=== PATIENT | female | born 1955 | race Two or more races ===

== ENCOUNTER 2022-06-07 12:14 | Day surgery (SDC) | payer MEDICARE, MEDICAID, SELFPAY ==
--- NOTE | 2022-06-06 10:58 | HO.ANESPROP2 ---
Documented by User: Mely Uribe NP 06/06/22 12:24 HPI - Anesthesia Eval Consult details Narrative: 67yo F for Colonoscopy CAD, Heart failure (reduced EF, but patient declines recommended ICD), afib (eliquis ok'd to hold by cardio), carotid stenois Case reviewed with Dr Annelise REYES Past Medical History Medical History Adenocarcinoma of sigmoid colon Afib CAD (coronary artery disease) Carotid stenosis Colon cancer Degenerative joint disease Diabetes History of colon polyps History of HI (myocardial infarction) Hyperlipidemia Hypertension Morbid obesity ISH (obstructive sleep apnea) Systolic heart failure Tubular adenoma Surgical History Surgical History History of cardiac catheterization History of section History of cholecystectomy History of colon resection History of colonoscopy History of hysterectomy Social History Social History (Updated 06/06/22 @ 09:40 by Erica Schmitt RN) Patient Tobacco Use Status: Former Tobacco user Quit Date: 15 years ago Use of substances other than those prescribed or required for medical reasons: No Are you DNR?: No Advance Directives: No Advance Directives Information Provided: Yes Meds Allergies Allergy/AdvReac Type Severity Reaction Status Date / Time codeine Allergy Unknown Verified 06/06/22 09:40 Home Medications Medication Instructions Recorded Confirmed Last Taken Type apixaban 5 mg tablet (Eliquis) 1 tab PO BID 06/06/22 06/06/22 Unknown History azelastine 137 mcg (0.1 %) nasal 2 spray intranasal BID 06/06/22 06/06/22 Unknown History spray aerosol bisoprolol fumarate 5 mg tablet 1 tab PO DAILY 06/06/22 06/06/22 Unknown History cetirizine 10 mg tablet 1 tab PO DAILY 06/06/22 06/06/22 Unknown History empagliflozin 25 mg tablet 1 tab PO QAM 06/06/22 06/06/22 Unknown History (Jardiance) irbesartan 75 mg tablet 1 tab PO DAILY 06/06/22 06/06/22 Unknown History rosuvastatin 40 mg tablet 1 tab PO DAILY 06/06/22 06/06/22 Unknown History spironolactone 25 mg tablet 1 tab PO DAILY 06/06/22 06/06/22 Unknown History Exam Exam Date and Time: June 06, 2022 1058 Narrative Narrative: ECHO 05/2022 LVEF 25-30% Severe global hypokinesis of LV LV wall thickness is mildly increased LV moderately dilated RV is normal in size and mildly hypokinetic LA moderately dilated RA is dilated Mild to moderate mitral regurg Mild pulmonary htn No significant change from 12/2021 MRA Neck 01/2021 Right common carotid is patent Occlusion of extracranial ZUNILDA from its origion (100%) Left common carotid is patent Origin of left ICA is patent. Apparent ulcerated plaques of the proximal L ICA measuring 4mm in length by up to 3mm in depth Proximal L ICA is subtly narrowed (<25%) Assessment and Plan Assessment Anesthesia Assessment: Chart Reviewed Documented by User: Jason Woodall MD 06/07/22 13:06 [facility] Past Medical History Medical History Adenocarcinoma of sigmoid colon Afib CAD (coronary artery disease) Carotid stenosis Colon cancer Degenerative joint disease Diabetes History of colon polyps History of HI (myocardial infarction) Hyperlipidemia Hypertension Morbid obesity ISH (obstructive sleep apnea) Systolic heart failure Tubular adenoma Family History Family history of problems with anesthesia: No Surgical History Surgical History History of cardiac catheterization History of section History of cholecystectomy History of colon resection History of colonoscopy History of hysterectomy History of Problems with Anesthesia: No Social History Social History (Updated 06/06/22 @ 09:40 by Erica Schmitt RN) Patient Tobacco Use Status: Former Tobacco user Quit Date: 15 years ago Use of substances other than those prescribed or required for medical reasons: No Are you DNR?: No Advance Directives: No Advance Directives Information Provided: Yes Meds Allergies Allergy/AdvReac Type Severity Reaction Status Date / Time codeine Allergy Unknown Verified 06/06/22 09:40 Home Medications Medication Instructions Recorded Confirmed Last Taken Type apixaban 5 mg tablet (Eliquis) 1 tab PO BID 06/06/22 06/06/22 Unknown History azelastine 137 mcg (0.1 %) nasal 2 spray intranasal BID 06/06/22 06/06/22 Unknown History spray aerosol bisoprolol fumarate 5 mg tablet 1 tab PO DAILY 06/06/22 06/06/22 Unknown History cetirizine 10 mg tablet 1 tab PO DAILY 06/06/22 06/06/22 Unknown History empagliflozin 25 mg tablet 1 tab PO QAM 06/06/22 06/06/22 Unknown History (Jardiance) irbesartan 75 mg tablet 1 tab PO DAILY 06/06/22 06/06/22 Unknown History rosuvastatin 40 mg tablet 1 tab PO DAILY 06/06/22 06/06/22 Unknown History spironolactone 25 mg tablet 1 tab PO DAILY 06/06/22 06/06/22 Unknown History Exam Airway Mallampati Class: IV TM Dist: >3cm Neck ROM: Full Partial: Upper Heart: irrr Lungs: few crackles at left base Assessment and Plan Final Anesthetic Review Family History of Problems with Anesthesia: No History of Problems with Anesthesia: No NPO: Yes ASA Class: IV Final Preanesthetic Review: No Changes in Pt Med Stat, Meds/Allgs Chart Reviewed, Consent Obtained/Reviewed and Anes Risks/Benef Reviewed Patient Risk: High Procedure Risk: Low Anesthetic Plan Anesthetic Plan: MAC: Disposition: Standard PACU
[2022-06-07 12:21] VITALS: BP 99/51; PULSE 102; RESP 20; TEMP 37; O2SAT 95; BMI 37.8
[2022-06-07] MEDS: Lactated Ringers 1,000 ML 20 ML IVCONT (12:51)
--- NOTE | 2022-06-07 13:02 | MHC.SHP ---
Pre-Procedural Eval Section A Date of Service: 06/07/22 The patient is an INPATIENT: No Changes since office visit: No Cold of Flu in the past 2 weeks, No New Medical Problems, No Changes in Medication and No Patient answered all questions The History & Physical has been completed within 30 days and I have reviewed it.: Yes Section B Chief Complaint: Encounter for screening for malignant neoplasm of Allergies: Allergies Allergy/AdvReac Type Severity Reaction Status Date / Time codeine Allergy Unknown Verified 06/06/22 09:40 Plan I have reviewed the history and physical and performed a pertinent physical examination on my patient. No changes have occurred unless specified.
[2022-06-07 13:23] LABS: Glucose, Whole Blood 121 mg/dL (60-115)
--- NOTE | 2022-06-07 13:58 | P.BOP_ITS ---
Brief Operative Note Date of Service: 06/07/22 Pre-op diagnosis: screening Post-op diagnosis: same Procedure: [id number] Surgeon: Surya Yates Anesthesia: MAC Was an Coordinator Cardiopulmonary Services used for this Procedure?: No Estimated blood loss (mL): 2 Pathology: other Condition: stable Disposition: PACU
--- NOTE | 2022-06-07 13:58 | PM.OP ---
Brief Operative Note Date of Service: 06/07/22 Pre-op diagnosis: screening Post-op diagnosis: same Procedure: [id number] Surgeon: Surya Yates Anesthesia: MAC Was an Welfare Specialist used for this Procedure?: No Estimated blood loss (mL): 2 Pathology: other Condition: stable Disposition: PACU
[2022-06-07 14:02] VITALS: BP 93/58; PULSE 77; RESP 20; TEMP 36.3; O2SAT 95
[2022-06-07 14:17] VITALS: BP 113/6; PULSE 74; RESP 18; TEMP 36.3; O2SAT 95
--- NOTE | 2022-06-07 21:06 | OP_ITS ---
SURGEON: Surya Yates MD INDICATIONS: Colon cancer screening and prior history of colon cancer. PREOPERATIVE DIAGNOSIS: POSTOPERATIVE DIAGNOSIS: PROCEDURE PERFORMED: Colonoscopy to the terminal ileum with biopsy. ESTIMATED BLOOD LOSS: COMPLICATIONS: ANESTHESIA: Monitored anesthesia care. ASSISTANTS: SPECIMENS: DESCRIPTION OF PROCEDURE: History and physical performed. The risks and benefits of the procedure were explained to the patient. Informed consent was obtained. The patient was placed in the left lateral decubitus position. A digital rectal exam was performed and was found to be normal. The Olympus pediatric video colonoscope was introduced into the rectum and advanced to the cecum without difficulty. The cecum was identified by transillumination, palpation, and identification of ileocecal valve. Examination was performed. The scope was removed. She tolerated the procedure well. Returned to recovery area in stable condition. FINDINGS: The terminal ileum was normal. The visualized colonic mucosa was normal. Abdominal wall pressure was used to assist in advancement of the scope due to looping in the sigmoid. A single polyp measuring less than 5 mm was identified at the level of the ileocecal valve. This was removed with biopsy forceps. No other polyps were identified. There was a widely patent sigmoid anastomosis at about 25 cm from her previous resection. There was moderate sigmoid diverticulosis. Retroflexed examination showed some small internal hemorrhoids. There was some liquid stool coating the mucosa limiting the sensitivity examination for detection of small polyps. This was washed and suctioned. The procedure was done on 06/07/2022. IMPRESSION: Colon polyp. RECOMMENDATION: Follow up the biopsy results. MD GARTH Mcknight/MODL / [id number]
== END 2022-06-07 15:05 | disposition home or self-care (01) ==
PROVIDERS: PCP Internal Medicine; Visit Provider Internal Medicine Gastroenterology
PROC: 0DJD8ZZ Inspection of Lower Intestinal Tract, Via Natural or Artificial Opening Endoscopic (ICD-10-PCS; CPT 45378; principal; 2022-06-07 13:00)
DX: Z12.11 Encounter for screening for malignant neoplasm of colon (principal); Z85.038 Personal history of other malignant neoplasm of large intestine; D12.0 Benign neoplasm of cecum; K57.30 Diverticulosis of large intestine without perforation or abscess without bleeding; K64.8 Other hemorrhoids; Z90.49 Acquired absence of other specified parts of digestive tract; Z98.0 Intestinal bypass and anastomosis status; E78.5 Hyperlipidemia, unspecified; I10 Essential (primary) hypertension; I25.10 Atherosclerotic heart disease of native coronary artery without angina pectoris; Z98.61 Coronary angioplasty status; I25.2 Old myocardial infarction; E11.9 Type 2 diabetes mellitus without complications; Z79.84 Long term (current) use of oral hypoglycemic drugs; Z79.82 Long term (current) use of aspirin; Z79.899 Other long term (current) drug therapy; Z88.8 Allergy status to other drugs, medicaments and biological substances; Z87.891 Personal history of nicotine dependence
CPT/HCPCS: 45380; 82947; 88305

== ENCOUNTER 2023-03-06 13:54 | Outpatient (REF) | payer MEDICARE, MEDICAID, SELFPAY ==
--- NOTE | 2023-03-07 10:16 | MHC.AU.HA3 ---
Hearing Instrument Follow-Up- Binaural Date of Visit: 03/06/23 Right Ear: Make, Model, Color, Serial Number: Adrian Aguirre [id number] SN: [id number] Color: Crum Metallurgy Teacher Repair Warranty: 02/20/2024 Metallurgy Teacher Loss and Damage Warranty: 02/20/2024 [facility] Service Plan: Battery Size: Rechargeable Production Superintendent Hydro/Slim Tube: 2M Earmold/Dome/CShell/SlimTip:Phonak acrylic slim tip canal mold SN: [id number] Type of Wax Guard: CeruStop Dispensed By: [facility] Date of Fitting: November 2020 Follow-Up Summary: 25 minutes late for 30 minute appointment. Able to see as next patient no showedTelly Kelley was a previous patient at the [facility] the [facility] and has decided to transfer care here. She reported that her hearing aid has recently sounded weak and is missing the wax guard. Cleaned hearing aid and ear mold. Significant wax build up noted in CeruShield on wine specialist. Vacuumed microphones. Replaced CeruShield. Attempted to replace CeruStop on ear mold; however, it would not stay in place. Allie noted that one time she tried changing the CeruStop and a red piece of the ear mold came off with it. Impression taken of right ear without incident to order new ear mold. Allie can use current ear mold as is for now without CeruStop. A listening check demonstrated that the hearing aid is amplifying. Updated firmware in hearing aid. Recommendations: Patient will be contacted when materials have arrived. Diagnosis Code(s): Primary Diagnosis: H90.41 SNHL Unilateral Right Ear, W/Unrestricted Contralateral Hearing Signature: Provider: Clementina Yanez, [facility]
== END 2023-03-06 13:55 | disposition home or self-care (01) ==
LOC: HO.HAP 13:54
PROVIDERS: Visit Provider Internal Medicine
DX: H90.41 Sensorineural hearing loss, unilateral, right ear, with unrestricted hearing on the contralateral side (principal)
CPT/HCPCS: 92592; 99499; V5275

== ENCOUNTER 2023-03-29 11:01 | Outpatient (REF) | payer MEDICARE, MEDICAID, SELFPAY ==
--- NOTE | 2023-03-29 14:19 | MHC.AU.HA3 ---
Hearing Instrument Follow-Up- Binaural Date of Visit: 03/29/23 Right Ear: Make, Model, Color, Serial Number: Adrian Aguirre [id number] SN: [id number] Color: Jackson Oceanologist Repair Warranty: 02/20/2024 Oceanologist Loss and Damage Warranty: 02/20/2024 [facility] Service Plan: Battery Size: Rechargeable Load Dispatcher/Slim Tube: 0M Earmold/Dome/CShell/SlimTip:Phonak acrylic slim tip canal mold SN: [id number] Warranty: 06/14/2023 Type of Wax Guard: CeruStop Dispensed By: Selvin itembase [facility] Date of Fitting: November 2020 Follow-Up Summary: Allie reported that her hearing aid is and will not charge. Confirmed in office - will need to send to [employer] for repair. Fit new slim tip ear mold on broadband engineer and transferred broadband engineer and ear mold to loaner hearing aid. Allie reported new ear mold felt more comfortable. No feedback noted in office. Sent Allie's hearing aid to [employer]. Recommendations: Patient will be contacted when materials have arrived - Will need appointment to transfer broadband engineer and ear mold from loaner to repaired hearing aid. Diagnosis Code(s): Primary Diagnosis: H90.A31 Mixed HL, Unilateral Right Ear, W/Restricted Contralateral Secondary Diagnosis: H90.A22 SNHL, Unilatearl, Left Ear, W/Restricted Contralateral Hearing Signature: Provider: Clementina Yanez, [facility]
== END 2023-03-29 11:02 | disposition home or self-care (01) ==
LOC: HO.HAP 11:01
PROVIDERS: Visit Provider Internal Medicine
DX: Z46.1 Encounter for fitting and adjustment of hearing aid (principal); H90.A31 Mixed conductive and sensorineural hearing loss, unilateral, right ear with restricted hearing on the contralateral side; H90.A22 Sensorineural hearing loss, unilateral, left ear, with restricted hearing on the contralateral side
CPT/HCPCS: 92592; 99499; V5264

== ENCOUNTER 2023-04-30 15:03 | Outpatient (REF) | payer MEDICARE, MEDICAID, SELFPAY | END 2023-04-30 15:04 | disposition home or self-care (01) | LOC: HO.HAP 15:03 | PROVIDERS: Visit Provider Internal Medicine | DX: Z13.89 Encounter for screening for other disorder (principal) ==

== ENCOUNTER 2023-08-17 16:17 | Outpatient (REF) | payer MEDICARE, MEDICAID, SELFPAY | END 2023-08-17 16:18 | disposition home or self-care (01) | LOC: HO.HAP 16:17 | PROVIDERS: Visit Provider Internal Medicine | DX: Z13.89 Encounter for screening for other disorder (principal) ==

== ENCOUNTER 2023-08-21 14:42 | Outpatient (REF) | payer MEDICARE, MEDICAID, SELFPAY | END 2023-08-21 14:43 | disposition home or self-care (01) | LOC: HO.HAP 14:42 | PROVIDERS: Visit Provider Internal Medicine | DX: Z46.1 Encounter for fitting and adjustment of hearing aid (principal); H90.A22 Sensorineural hearing loss, unilateral, left ear, with restricted hearing on the contralateral side; H90.A31 Mixed conductive and sensorineural hearing loss, unilateral, right ear with restricted hearing on the contralateral side | CPT/HCPCS: 92592; 99499 ==

== ENCOUNTER 2024-09-02 10:39 | Day surgery (SDC) | payer MEDICARE, MEDICAID, SELFPAY ==
[2024-08-28 12:26] VITALS: BMI 39.5
[2024-09-02 10:57] VITALS: BMI 36.7
[2024-09-02 11:08] VITALS: BP 121/90; PULSE 103; RESP 18; TEMP 37.3; O2SAT 92
[2024-09-02 11:22] LABS: Glucose, Whole Blood 124 mg/dL (60-115)
[2024-09-02] MEDS: Lactated Ringers 1,000 ML 100 ML IVCONT (11:22)
--- NOTE | 2024-09-02 11:23 | MHC.SHP ---
Pre-Procedural Eval Section A - 24 Hr Update-Section A only Date of Service: 09/02/24 Section B - Complete if H&P > 30 days Chief Complaint: s/sx involving digestive,hx of malignant Details of Present Illness: see H&P no changes Relevant Family History (Specify if Yes): No Relevant Social History: None Present Medications: see Short Stay Collaborative assessment Medical History: No relevant PMH History of Previous Operations: No relevant previous surgery Allergies: Allergies Allergy/AdvReac Type Severity Reaction Status Date / Time codeine Allergy Unknown Verified 09/02/24 10:53 Review of Systems Sugical H&P ROS: Negative: Constitution, Cardiovascular, Respiratory, Neurological, Psychiatric, Hem-Onc, Allergic/Immunologic, Gastrointestinal, Genitourinary, Musculoskeletal, Integumentary, Endocrine and Eyes/Ears/Nose/Throat Exam Surgical H&P Exam: Normal: HEENT, Normal: Heart, Normal: Lungs, Normal: Extremities, Normal: Abdomen, Normal: Skin and Normal: Neurological Plan Diagnosis/Plan: Unchanged I have reviewed the history and physical and performed a pertinent physical examination on my patient. No changes have occurred unless specified. Time Spent With Patient Time: Total time managing care of this patient today ____ minutes.
--- OUTSIDE RECORDS SUMMARY | 2024-09-02 11:31 | XMS_ITS | Continuity of Care Document ---
Author Organization [facility] Address [address] [place] [id number]- Care Team Providers Care Underground Electrician Name Role Phone Artemio VALLE, Edna Polanco Primary Care Physician Encounter [facility] Date(s): 08/01/24 - 08/31/24 [facility] [address] [place] [id number]- Encounter Type: Triage Allergies, Adverse Reactions, Alerts Substance Criticality Severity Reaction Reaction Severity Status codeine gi upset dizzy Active rosuvastatin 1 Activ e 1Pt reports muscle aches Immunizations Given and Recorded Vaccine Date Status Refusal Reason SARS-CoV-2 (COVID-19) mRNA BNT-162b2 vac 12/07/20 Recorded SARS-CoV-2 (COVID-19) mRNA BNT-162b2 vac 11/16/20 Recorded tetanus/diphtheria/pertussis, acel(Tdap) 05/24/15 Given Medications Albuterol (Eqv-Ventolin HFA) 90 mcg/inh inhalation aerosol 2 puffs, Inhalation, 4 times a day, PRN NEEDED FOR WHEEZING, # 18 each, 2 Refills, Maintenance, 08/12/24 2:10:00 PM EST, [id number], 25, INHALE 2 PUFFS BY MOUTH 4 TIMES A DAY NEEDED FOR WHEEZING, 163, cm, 08/08/24 14:51:00 EST, Height, 102, kg, 09/26/23 13:17:00 EDT, Dry Weight Start Date: 08/12/24 Status: Ordered Quantity: 18.0 Unit: each Repeat number: 1 aspirin 81 mg oral delayed release tablet 81 mg, 1, tablet, By Mouth, Daily, # 30 tablet, Refills 0, Maintenance, 04/26/22 1:54:00 PM EDT, Partial fill upon patient request if the prescription is for a schedule II opioid drug. Start Date: 04/26/22 Status: Ordered Quantity: 30.0 Unit: tablet Repeat number: 1 atorvastatin 80 mg oral tablet 1 tablet = 80 mg, By Mouth, Daily, # 90 tablet, 3 Refills, Maintenance, 11/09/23 9:25:00 AM EDT, Tablet, [id number], Partial fill upon patient request if the prescription is for a schedule II opioid drug., 163, cm, 10/12/23 12:49:00 EDT, Height, 102, kg, 09/26/23 13:17:00 EDT, Dry Weight Start Date: 11/09/23 Stop Date: 11/03/24 Status: Ordered Quantity: 90.0 Unit: tablet Repeat number: 4 Indication: Unspecified atrial fibrillation azelastine 137 mcg/inh (0.1%) nasal spray See Instructions, SPRAY 2 SPRAYS INTO EACH NOSTRIL DAILY NEEDED FOR ALLERGIES., # 90 Unknown, 1 Refills, Maintenance, 05/16/24 8:19:00 AM EDT, [id number], 90, SPRAY 2 SPRAYS INTO EACH NOSTRIL DAILY NEEDED FOR ALLERGIES., 163, cm, 02/14/24 9:49:00 EDT, Height, 102, kg, 09/26/23 13:17:00 EDT, Dry Weight Start Date: 05/16/24 Status: Ordered Quantity: 90.0 Unit: Unknown Repeat number: 1 bisoprolol 5 mg oral tablet 1 tablet = 5 mg, By Mouth, Daily, Stop Carvedilol, # 90 each, 3 Refills, Maintenance, 12/25/23 9:45:00 AM EDT, Tablet, [id number], 163, cm, 12/12/23 13:50:00 EDT, Height, 102, kg, 09/26/23 13:17:00 EDT, Dry Weight Start Date: 12/25/23 Status: Ordered Quantity: 90.0 Unit: each Repeat number: 4 Indication: Unspecified atrial fibrillation cetirizine 10 mg oral tablet 1 tablet, By Mouth, Daily, # 90 tablet, 1 Refills, Maintenance, 03/19/24 1:37:00 PM EDT, [id number], 163, cm, 02/14/24 9:49:00 EDT, Height, 102, kg, 09/26/23 13:17:00 EDT, Dry Weight Start Date: 03/19/24 Status: Ordered Quantity: 90.0 Unit: tablet Repeat number: 1 [facility], 1, supp, Rectally, Daily, PRN, # 25 supp, 0 Refills, Maintenance, 246:14:00 AM EDT, 163, cm, 12/12/23 13:50:00 EDT, Height, 102, kg, 09/26/23 13:17:00 EDT, Dry Weight Start Date: 02/05/24 Status: Ordered Quantity: 25.0 Unit: supp Repeat number: 1 Eliquis 5 mg oral tablet 1 tablet = 5 mg, By Mouth, 2 times a day, # 180 tablet, 3 Refills, Maintenance, 01/14/24 12:59:00 PM EDT, [id number], 163, cm, 12/12/23 13:50:00 EDT, Height, 102, kg, 09/26/23 13:17:00 EDT, DryWeight Start Date: 01/14/24 Status: Ordered Quantity: 180.0 Unit: tablet Repeat number: 4 Farxiga 10 mg oral tablet 1 tablet = 10 mg, By Mouth, Daily, # 90 tablet, 3 Refills, Maintenance, 06/26/24 2:51:00 PM EST, Tablet, [facility]/pharmacy #[id number], Partial fill upon patient request if the prescription is for a schedule IIopioid drug., 163, cm, 06/26/24 11:09:00 EST, Height, 102, kg, 09/26/23 13:17:00 EDT, Dry Weight Start Date: 06/26/24 Status: Ordered Quantity: 90.0 Unit: tablet Repeat number: 4 fluticasone 50 mcg/inh nasal spray See Instructions, SPRAY 2 SPRAYS INTO BOTH NOSTRILS EVERY DAY, # 48 mL, 1 Refills, Maintenance, 01/28/24 5:34:00 PM EDT, [facility] #[id number], 90, SPRAY 2 SPRAYS INTO BOTH NOSTRILS EVERY DAY, 163, cm, 12/12/23 13:50:00 EDT, Height, 102, kg, 09/26/23 13:17:00 EDT, Dry Weight Start Date: 01/28/24 Status: Ordered Quantity: 48.0 Unit: mL Repeat number: 2 Freestyle lite lancets Freestyle lite lancets, See Instructions, # 100 each, Refills 10, Tot. Refills 10, Maintenance, useto check blood sugars daily DM2 E11.9, 04/02/23 3:10:00 PM EDT, Supply, 162, cm, 02/28/23 13:52:00 EDT, Height, 103, kg, 10/04/22 3:15:00 EDT, Dry Weight Start Date: 04/02/23 Status: Ordered Quantity: 100.0 Unit: each Repeat number: 11 Freestyle lite test strips Freestyle lite test strips, See Instructions, # 100 each, Refills 10, Tot. Refills 10, Maintenance,use to check blood sugars daily DM2 E11.9, 03/29/23 11:16:00 AM EDT, Supply, 162, cm, 02/28/23 13:52:00 EDT, Height, 103, kg, 10/04/22 3:15:00 EDT, Dry Weight Start Date: 03/29/23 Status: Ordered Quantity: 100.0 Unit: each Repeat number: 11 Krazati 200 mg oral tablet 2 tablet = 400 mg, By Mouth, 2 times a day, do not crush or chew, # 180 tablet, 0 Refills, Maintenance, 07/02/24 9:35:00 AM EST, Tablet, Partial fill upon patient request if the prescription is for aschedule II opioid drug. Start Date: 07/02/24 Status: Ordered Quantity: 180.0 Unit: tablet Repeat number: 1 Lasix 40 mg oral tablet 40 mg, 1, tablet, By Mouth, 2 times a day, # 60 tablet, Refills 3, Tot. Refills 3, Maintenance, 12/03/23 8:54:00 AM EDT, Route to Pharmacy Electronically, [facility]/pharmacy #[id number], Partial fill upon patientrequest if the prescription is for a schedule II opioid drug., 163, cm, 10/12/23 12:49:00 EDT, Height, 102, kg, 09/26/23 13:17:00 EDT, Dry Weight Start Date: 12/03/23 Stop Date: 04/01/24 Status: Ordered Quantity: 60.0 Unit: tablet Repeat number: 4 Probiotic Formula 1 capsule, By Mouth, Daily, 0 Refills, Maintenance, 01/23/18 9:09:28 PM EDT Start Date: 01/23/18 Status: Ordered Repeat number: 1 PROzac 20 mg oral capsule 20 mg, 1, capsule, By Mouth, Daily, # 90 capsule, Refills 1, Tot. Refills 1, Maintenance, 07/02/24 9:43:00 AM EST, Route to Pharmacy Electronically, [facility]/pharmacy #[id number], Dose change from 10 mg, 163, cm, 06/26/24 11:09:00 EST, Height, 102, kg, 09/26/23 13:17:00 EDT, Dry Weight Start Date: 07/02/24 Status: Ordered Quantity: 90.0 Unit: capsule Repeat number: 2 spironolactone 25 mg oral tablet 25 mg, 1, tablet, By Mouth, Daily, # 30 tablet, Refills 3, Tot. Refills 3, Maintenance, 08/12/24 4:34:00 PM EST, Route to Pharmacy Electronically, [facility]/pharmacy #[id number], Partial fill upon patient requestif the prescription is for a schedule II opioid drug., 163, cm, 08/08/24 14:51:00 EST, Height, 102,kg, 09/26/23 13:17:00 EDT, Dry Weight Start Date: 08/12/24 Stop Date: 12/10/24 Status: Ordered Quantity: 30.0 Unit: tablet Repeat number: 4 Problem List Condition Confirmation Course Effective Dates Status H ealth Status Informant History of colon cancer 1 Confirmed Active Retinal artery plaque Confirmed Active Ascending aorta dilation Confirmed Active Atrial fibrillation Confirmed Active Cardiac cirrhosis Confirmed Active Occlusion of extracranial carotid artery Confirmed Active Central and obstructive sleep apnea 2 Confirmed Active Systolic congestive heart failure 3 Confirmed Active Coronary arteriosclerosis Confirmed Active Former tobacco use Confirmed Active NATIVE (hard of hearing) Confirmed Active HFrEF (heart failure with reduced ejection fraction) Confirmed Active History of non-ST elevation myocardial infarction (NSTEMI) Confirmed Active Hyperlipidemia Confirmed Active HLD (hyperlipidemia) Confirmed Active Hypertension associated with type 2 diabetes mellitus Confirmed Active Hernia, incisional Confirmed Active Ischemic cardiomyopathy Confirmed Active Enlarged LA (left atrium) Confirmed Active Chronic anticoagulation Confirmed Active Recurrent colorectal adenocarcinoma Confirmed Active Metastatic colon cancer to liver 4 Confirmed Active Mild depression Confirmed Active Mild intermittent asthma Confirmed Active Moderate mitral regurgitation Confirmed Active Morbid obesity due to excess calories Confirmed Active History of open sigmoidectomy 5 Confirmed Active Pulmonary hypertension Confirmed Active Severe obesity (BMI 35.0-39.9) with comorbidity Confirmed Active Type 2 diabetes mellitus with peripheral artery disease Confirmed Active 1s/p sigmoidectomy and chemo 2not on CPAP 3EF 15 % 09/2023 4Finished radiation 12/2023 5complicated with wound dehiscence and wound vac 2012 Social History Social History Type Response Smoking Status Former smoker; Tobac co user in household: Yes; Other: Quit smoking in 2009.; entered on: 10/25/16 Sex Sex Representation Female (finding) Patient Care team information Care Team Personnel Name: Lakisha Soto CNM Position: Reference Physician Member Role: Primary Care Nurse Address: [address] [place] [id number]- Telecom: Name: Edna Ulloa MD Position: [facility] Physician - Primary Care Member Role: PCP Address: [address] [place] [address] [place] [id number]- Telecom: Name: Adolph Lui RN Position: S RN Member Role: Primary Care Nurse Name: Savi Perera RN Position: S RN Member Role: Primary Care Nurse Name: Uday Cristina RN Position: S RN Member Role: Primary Care Nurse Name: Vu Massey RN Position: S RN Member Role: Primary Care Nurse Care Team Related Persons Name: VINCENZO MCDERMOTT Name: FAM RIGGS Insurance Providers Guarantor name: BENIGNO MCDERMOTT Health Plan Information #: 1 Payer: MEDICARE PART B OUTPT Member Number: NA Policy Number: NA Group Number: NA Health Plan Information #: 2 [facility] Member Number: NA Policy Number: NA Group Number: NA
--- OUTSIDE RECORDS SUMMARY | 2024-09-02 11:31 | XMS_ITS | Patient Health Record ---
Author Organization [facility] Address [address] [place] [address] Care Team Providers Care Vision Specialist Name Role Phone Edna Ulloa M.D. Primary Care Provider Surya Rowland Jr Unavailable ALLERGIES Allergen (clinical drug ingredient) Drug/Non Drug Allergy documented on EMR Reaction Allergy Type Onset Date Status codeine Codeine Unknown Drug Allergy Active RESULTS Component Value Reference Range Notes Glucose, Whole Blood (Not ye t reviewed by provider) Interpretation: Performing Lab:[facility], [address] [place] [id number] Notes/Report: Glucose, Whole Blood 124 60-115 mg/dL METER # : [id number] REASON FOR REFERRAL No Information MEDICATIONS Medication SIG (Take, Route, Frequency, Duration) Notes Start Date End Date Status Furosemide 40 MG Oral for 90 U nknown Atorvastatin Calcium 80 MG TAKE 1 TABLET BY MOUTH EVERY DAY Oral for 90 Unknown Eliquis 5 MG Oral for 90 Unkno wn FreeStyle Lancets - USE TO CHECK BLOOD SUGARS DAILY for 90 Unknown Azelastine HCl 137 MCG/SPRAY SPRAY 2 SPR AYS INTO EACH NOSTRIL TWICE A DAY Nasal for 89 Unknown Bisoprolol Fumarate 5 MG Oral for 90 Unknown Aspir-Low 81 MG 1 tablet Orally Once a day for 30 day(s) Active Spironolactone 25 MG Oral for 90 Unknown Stool Softener 100 MG 1 capsule as neede d Orally Once a day for 30 day(s) Active Cetirizine HCl 10 MG TAKE 1 TABLET BY [facility] EVERY DAY. INSURANCE WILL PAY ON 06/28 Oral for 90 Unknown MiraLax 17 GM/SCOOP 1 scoop mixed with 8 ounces of fluid Orally Once a day for 30 day(s) Active Probiotic - as directed Orally 05/08/2022 Unknown Fluoxetine 20 MG 1 capsule Orally Onc e a day for 30 day(s) Active Farxiga 10 MG TAKE 1 TABLET BY JOAN TH EVERY DAY Oral for 90 Unknown IMMUNIZATIONS Vaccine Route Administration Date Status Comme nts Influenza Unknown 05/08/2022 Refused Influenza Unknown 10/08/2023 Refused SOCIAL HISTORY Tobacco Use: Social History Observation Description Date Details (start date - stop date) Former Smoker NA - NA Sex Assigned At : Social History Observation Description Sex Assigned At Unknown Tobacco Use/Smoking Question Answer Notes Patient is a former smoker Alcohol Screen Question Answer Notes Did you have a drink contain ing alcohol in the past year? Yes How often did you have a dri nk containing alcohol in the past year? Monthly or less (1 point) How many drinks did you have on a typical day when you were drinking in the past year? 1 or 2 drinks (0 point) How often did you have 6 or more drinks on one occasion in the past year? Never (0 point) Points 1 Interpretation Negative PROBLEMS Problem Type ICD Code Onset Dates Problem Status W/U Status Risk SNOMED Code Notes Problem Colon cancer screening (Z12.11) Active confirmed 699290213 Problem long term care social worker (current) use of anticoagulants (Z79.01) Active confirmed 790311830 Problem Personal history of colon cancer (Z85.038) Active confirmed History of malignant neoplasm of colon (531895606) Problem Partial small bowel obstruction (K56.600) Active confirmed 890450397 Problem Liver lesion (K76.9) Active confirmed 866774055 Problem Change in bowel movement (R19.8) Active confirmed 92068361 VITAL SIGNS Temperature 97.7 degrees Fahrenheit 10/08/2023 Blood pressure diastolic 00 mm Hg 10/08/2023 Height 64 in 10/08/2023 Blood pressure systolic 000 mm Hg 10/08/2023 Weight 230 lb 4 oz lbs 10/08/2023 BMI 39.52 kg/m2 10/08/2023 Encounters Encounter Location Date Provider Diagnosis [facility] Outpatient [address], [place] [id number] 09/02/2024 [facility] [address] [facility] [address] [place] [address] 10/08/2023 Surya Yates Jr Partial small bowel obstruction K56.600 and Liver lesion K76.9 [facility] [address] [place] [address] 07/28/2024 Surya Yates Jr [facility] [address] [place] [phone] 09/25/2023 Surya Yates Jr [facility] [address] [place] [address] 10/02/2023 Surya Yates Jr [facility] [address] [place] [phone] 10/08/2023 Surya Yates Jr [facility] [address] [place] [address] 06/27/2024 Surya Yates Jr [facility] [address] [place] [phone] 07/11/2024 Surya Yates Jr [facility] [address] [place] [address] 07/11/2024 Surya Yates Jr Change in bowel movement R19.8 and Personal history of colon cancer Z85.038 [facility] [address] [place] [address] 07/28/2024 Surya Yates Jr [facility] [address] [place] [address] 08/18/2024 Surya Yates Jr [facility] [address] [place] [phone] 08/28/2024 Surya Yates Jr ASSESSMENTS Encounter Date Diagnosis Assessment Notes Treatment Notes Treatment Clinical Notes 10/08/2023 Liver lesion (ICD-10 - K76.9) 10/08/2023 Partial small bowel obstruction (ICD-10 - K56.600) Albumin blood (serum) test material was printed 07/11/2024 Personal history of colon cancer (ICD-10 - Z85.038) 07/11/2024 Change in bowel movement (ICD-10 - R19.8) PLAN OF TREATMENT Pending Test Test Name Order Date Glucose, Whole Blood 09/02/2024 Future Test Test Name Order Date COLONOSCOPY 05/08/2022 COLONOSCOPY 07/11/2024 Next Appt Details Provider Name:Surya wynn , 09/02/2024 11:40:00 AM, [address] [facility] , [place], [place], [phone], Insurance Providers Payer Name Payer Address Payer Phone Subscriber Number Group Number Insured Name Patient Relationship to Insured Coverage Start Date Coverage End Date [place]ARE OF [place] [address] [place] [address] [id number] BENIGNO MCDERMOTT Self - patient is the insured MEDICAID OF [facility].[facility] [address] [place] [address] [phone] [id number] BENIGNO MCDERMOTT Self - patient is the insured MEDICAL (GENERAL) HISTORY Medical History History ICD Code Colon cancer and history of colon polyps, colonoscopy 06/06, ileocecal valve tubular adenoma, widely patent anastomosis at 20 cm, five-year followup Degenerative joint disease Diabetes mellitus Hypertension Hyperlipidemia Coronary artery disease with history of ND Carotid artery disease Sleep apnea Surgical History Surgery Date(Month/Year) Sigmoid resection for colon cancer 2012 Cholecystectomy section Hysterectomy Cardiac catheterization and stent placem ent Hospitalization History Reason Date(Month/Year)
--- OUTSIDE RECORDS SUMMARY | 2024-09-02 11:31 | XMS_ITS ---
Author Organization [facility] Address [address] [place] [address] Care Team Providers Care Assistant Professor Sculpture Name Role Phone Artemio Rey Edna Primary Care Provider Aida Yates Jr, Surya Unavailable [phone] REASON FOR VISIT change in bowels. Encounters Encounter Location Date Provider Diagnosis [facility] Outpatient [address] [place] [id number] 09/02/2024 Surya Yates Jr PLAN OF TREATMENT Next Appt Details Provider Name:Surya wynn Jr, 09/02/2024 11:40:00 AM, [address] [place] [address], [phone],
--- OUTSIDE RECORDS SUMMARY | 2024-09-02 11:32 | XMS_ITS | Continuity of Care Document ---
Author Organization [facility] Address [address] [place] [address]- Care Team Providers Care Upper Leather Cutter Name Role Phone Artemio VALLE, Edna Polanco Primary Care Physician [place] [facility] Date(s): 07/14/24 - 08/13/24 [facility] [address] [place] [address] Attending Physician: Admdhaval, Aden8 Admitting Physician: Admtr, ArFelicia Referring Physician: Admtr, Ar8 Encounter Type: Triage Allergies, Adverse Reactions, Alerts [...] Maintenance, 08/12/24 2:10:00 PM EST, [facility] 25, INHALE 2 PUFFS BY MOUTH 4 [...] Refills, Maintenance, 11/09/23 9:25:00 AM EDT, Tablet, [facility]/pharmacy #[id number], Partial fill upon patient request [...] 1 Refills, Maintenance, 05/16/24 8:19:00 AM EDT, [facility], 90, SPRAY 2 SPRAYS INTO EACH NOSTRIL DAILY NEEDED FOR ALLERGIES., 163, cm, 02/14/24 9:49:00 EDT, Height, 102, kg, 09/26/23 13:17:00 EDT, Dry Weight Start Date: 05/16/24 Status: Ordered Quantity: 90.0 Unit: Unknown Repeat number: 1 bisoprolol 5 mg oral tablet 1 tablet = 5 mg, By Mouth, Daily, Stop Carvedilol, # 90 each, 3 Refills, Maintenance, 12/25/23 9:45:00 AM EDT, Tablet, [facility]/pharmacy #1130, 163, cm, 12/12/23 13:50:00 EDT, Height, 102, kg, 09/26/23 13:17:00 EDT, Dry Weight Start Date: 12/25/23 Status: Ordered Quantity: 90.0 Unit: each Repeat number: 4 Indication: Unspecified atrial fibrillation cetirizine 10 mg oral tablet 1 tablet, By Mouth, Daily, # 90 tablet, 1 Refills, Maintenance, 03/19/24 1:37:00 PM EDT, [facility] ST[facility] [address], 163, cm, 02/14/24 9:49:00 EDT, Height, 102, kg, 09/26/23 13:17:00 EDT, Dry Weight Start Date: 03/19/24 Status: Ordered Quantity: 90.0 Unit: tablet Repeat number: 1 [facility], 1, supp, Rectally, Daily, PRN, [...] 3 Refills, Maintenance, 01/14/24 12:59:00 PM EDT, [facility]/pharmacy #1130, 163, cm, 12/12/23 13:50:00 EDT, Height, 102, kg, 09/26/23 13:17:00 EDT, DryWeight Start Date: 01/14/24 Status: Ordered Quantity: 180.0 Unit: tablet Repeat number: 4 Farxiga 10 mg oral tablet 1 tablet = 10 mg, By Mouth, Daily, # 90 tablet, 3 Refills, Maintenance, 06/26/24 2:51:00 PM EST, Tablet, [facility]/pharmacy #1130, Partial fill upon patient request [...] 1 Refills, Maintenance, 01/28/24 5:34:00 PM EDT, [facility]/pharmacy #1130, 90, SPRAY 2 SPRAYS INTO [...] 8:54:00 AM EDT, Route to Pharmacy Electronically, [facility]/pharmacy #1130, Partial fill upon patientrequest if the prescription [...] 9:43:00 AM EST, Route to Pharmacy Electronically, [facility]/pharmacy #[id number], Dose change from 10 mg, 163, cm, 06/26/24 11:09:00 EST, Height, 102, kg, 09/26/23 13:17:00 EDT, Dry Weight Start Date: 07/02/24 Status: Ordered Quantity: 90.0 Unit: capsule Repeat number: 2 spironolactone 25 mg oral tablet 25 mg, 1, tablet, By Mouth, Daily, # 30 tablet, Refills 3, Tot. Refills 3, Maintenance, 08/12/24 4:34:00 PM EST, Route to Pharmacy Electronically, [facility]/pharmacy #1130, Partial fill upon patient requestif [...] Confirmed Active Former tobacco use Confirmed Active [place] (hard of hearing) Confirmed Active HFrEF (heart [...] Care team information Care Team Personnel Name: Laksiha Soto CNM Position: Reference Physician Member Role: Primary Care Nurse Address: [address] [place] [address]- Telecom: Name: Edna Ulloa MD Position: [facility] Physician - Primary Care Member Role: PCP Address: [address] [place] [address] [place] [address]- Telecom: Name: Adolph Lui RN Position: [facility] RN Member Role: Primary Care Nurse Name: Savi Perera RN Position: [facility] RN Member Role: Primary Care Nurse Name: Uday Cristina RN Position: [facility] RN Member Role: Primary Care Nurse Name: Vu Massey RN Position: [facility] RN Member Role: Primary Care Nurse Care Team Related Persons Name: VINCENZO MCDERMOTT Name: FAM RIGGS Insurance Providers Guarantor name: BENIGNO MCDERMOTT Health Plan Information #: 1 Payer: MEDICARE PART B OUTPT Member Number: NA Policy Number: NA Group Number: NA Health Plan Information #: 2 Payer: [place] Member Number: NA Policy Number: NA Group Number: NA
--- OUTSIDE RECORDS SUMMARY | 2024-09-02 11:32 | XMS_ITS | Continuity of Care Document ---
Author Organization [facility] Address [address] [place] [address]- Care Team Providers Care Platen Drier Operator Name Role Phone Edna Ulloa MD Primary Care Physician Encounter [facility] R [id number] Date(s): 08/08/24 - 08/15/24 [facility] [address] [place] [address] Attending Physician: Dolores ORTEGA, Paula Myers Admitting Physician: Dolores ORTEGA, Paula Myers Referring Physician: Edna Ulloa MD Encounter Type: Office Visit Allergies, Adverse Reactions, Alerts Substance Criticality Severity [...] Refills, Maintenance, 11/09/23 9:25:00 AM EDT, Tablet, [facility]/pharmacy #1130, Partial fill upon patient request if [...] 1 Refills, Maintenance, 05/16/24 8:19:00 AM EDT, [facility] STORE [address], 90, SPRAY 2 SPRAYS INTO EACH NOSTRIL DAILY NEEDED FOR ALLERGIES., 163, cm, 02/14/24 9:49:00 EDT, Height, 102, kg, 09/26/23 13:17:00 EDT, Dry Weight Start Date: 05/16/24 Status: Ordered Quantity: 90.0 Unit: Unknown Repeat number: 1 bisoprolol 5 mg oral tablet 1 tablet = 5 mg, By Mouth, Daily, Stop Carvedilol, # 90 each, 3 Refills, Maintenance, 12/25/23 9:45:00 AM EDT, Tablet, [facility]/pharmacy #1130, 163, cm, 12/12/23 13:50:00 EDT, Height, 102, kg, 09/26/23 13:17:00 EDT, Dry Weight Start Date: 12/25/23 Status: Ordered Quantity: 90.0 Unit: each Repeat number: 4 Indication: Unspecified atrial fibrillation cetirizine 10 mg oral tablet 1 tablet, By Mouth, Daily, # 90 tablet, 1 Refills, Maintenance, 03/19/24 1:37:00 PM EDT, [facility] ST[facility] [address], 163, cm, 02/14/24 9:49:00 EDT, Height, 102, kg, 09/26/23 13:17:00 EDT, Dry Weight Start Date: 03/19/24 Status: Ordered Quantity: 90.0 Unit: tablet Repeat number: 1 [facility], 1, supp, Rectally, Daily, PRN, [...] 3 Refills, Maintenance, 01/14/24 12:59:00 PM EDT, [facility]/pharmacy #1130, 163, cm, 12/12/23 13:50:00 EDT, Height, 102, kg, 09/26/23 13:17:00 EDT, DryWeight Start Date: 01/14/24 Status: Ordered Quantity: 180.0 Unit: tablet Repeat number: 4 Farxiga 10 mg oral tablet 1 tablet = 10 mg, By Mouth, Daily, # 90 tablet, 3 Refills, Maintenance, 06/26/24 2:51:00 PM EST, Tablet, [facility]/pharmacy #1130, Partial fill upon patient request if [...] 1 Refills, Maintenance, 01/28/24 5:34:00 PM EDT, [facility]/pharmacy #1130, 90, SPRAY 2 SPRAYS INTO BOTH [...] 8:54:00 AM EDT, Route to Pharmacy Electronically, [facility]/pharmacy #1130, Partial fill upon patientrequest if the [...] 9:43:00 AM EST, Route to Pharmacy Electronically, [facility]/pharmacy #1130, Dose change from 10 mg, 163, cm, 06/26/24 11:09:00 EST, Height, 102, kg, 09/26/23 13:17:00 EDT, Dry Weight Start Date: 07/02/24 Status: Ordered Quantity: 90.0 Unit: capsule Repeat number: 2 spironolactone 25 mg oral tablet 25 mg, 1, tablet, By Mouth, Daily, # 30 tablet, Refills 3, Tot. Refills 3, Maintenance, 08/12/24 4:34:00 PM EST, Route to Pharmacy Electronically, [facility]/pharmacy #1130, Partial fill upon patient requestif the [...] Confirmed Active Former tobacco use Confirmed Active [place] (hard of hearing) Confirmed Active HFrEF (heart [...] with wound dehiscence and wound vac 2012 Vital Signs Most recent to oldest [Reference Range]: 1 Height 163 cm (08/08/24 2:51 PM) Weight 100 kg (08/08/24 2:51 PM) Body Mass Index [18.5-24.99 kg/m2] 37.64 kg/m2 *>HHI* (08/08/24 2:51 PM) Weight Obtained Via Patient/family state d (08/08/24 2:51 PM) Social History Social History Type Response Smoking Status Former smoker; Tobac co user in household: Yes; Other: Quit smoking in 2009.; entered on: 10/25/16 Sex Sex Representation Female (finding) Patient Care team information Care Team Personnel Name: Lakisha Soto CNM Position: Reference Physician Member Role: Primary Care Nurse Address: [address] [place] [address]- Telecom: Name: Edna Ulloa MD Position: [facility] Physician - Primary Care Member Role: PCP Address: [address] [place] [address] [place] [address]- Telecom: Name: Adolph Lui RN Position: S RN Member Role: Primary Care Nurse Name: Savi Perera RN Position: S RN Member Role: Primary Care Nurse Name: Uday Cristina RN Position: S RN Member Role: Primary Care Nurse Name: Vu Massey RN Position: [facility] RN Member Role: Primary Care Nurse Care Team Related Persons Name: VINCENZO MCDERMOTT Name: FAM RIGGS Insurance Providers Guarantor name: [employer] [facility] Information #: 1 Payer: MEDICARE PART B OUTPT Member Number: [id number] Policy Number: NA Group Number: NA Health Plan Information #: 2 Payer: [facility] Member Number: [id number] Policy Number: NA Group Number: NA
--- OUTSIDE RECORDS SUMMARY | 2024-09-02 11:32 | XMS_ITS ---
Author Organization [facility] Address [address] [place] [address] Care Team Providers Care Flosser Name Role Phone Edna Ulloa M.D. Primary Care Provider Aida Yates Jr, Surya Unavailable [phone] REASON FOR VISIT procedure Encounters Encounter Location Date Provider Diagnosis [facility] [address] [facility] [address] [place] [phone] 08/28/2024 Surya Yates Jr PLAN OF TREATMENT Next Appt Details Provider Name:Surya wynn Jr, 09/02/2024 11:40:00 AM, [address] [place] [address] , [place], [place], [phone],
--- OUTSIDE RECORDS SUMMARY | 2024-09-02 11:32 | XMS_ITS ---
Author Organization [facility] Address [address] [place] [address] Care Team Providers Care Dynamic Balancer Name Role Phone Artemio Rey Edna Primary Care Provider Aida Yates Jr, Surya Braga REASON FOR VISIT stopping medication for colonoscopy Encounters Encounter Location Date Provider Diagnosis [facility] [address] [facility] [address] [place] [phone] 08/18/2024 Surya Yates Jr PLAN OF TREATMENT Next Appt Details Provider Name:Surya wynn Jr, 09/02/2024 11:40:00 AM, [address] [place] [address] , [place], [place], [phone],
[2024-09-02 12:02] VITALS: BP 90/56; PULSE 91; RESP 16; TEMP 36.1; O2SAT 92
[2024-09-02 12:17] VITALS: BP 104/60; PULSE 95; RESP 18; TEMP 36.6; O2SAT 95
--- NOTE | 2024-09-02 13:47 | OP_ITS ---
DATE OF SERVICE: 09/02/2024 SURGEON: Surya Yates MD INDICATIONS: Change in bowel habits and colon cancers and history of colon polyps. PREOPERATIVE DIAGNOSIS: POSTOPERATIVE DIAGNOSIS: PROCEDURE PERFORMED: Colonoscopy to the terminal ileum with biopsy. ESTIMATED BLOOD LOSS: COMPLICATIONS: ANESTHESIA: Monitored anesthesia care. ASSISTANTS: SPECIMENS: DESCRIPTION OF PROCEDURE: A history and physical was performed. The risks and benefits of the procedure were explained to the patient. Informed consent was obtained. The patient was placed in the left lateral decubitus position. A digital rectal exam was performed and was found to be normal. The Olympus pediatric video colonoscope was introduced into the rectum and advanced to the cecum. The cecum was identified by transillumination, palpation, and identification of the ileocecal valve. Examination was performed. The scope was removed. She tolerated the procedure well and was returned to the recovery area in stable condition. FINDINGS: Limited views of the terminal ileum were normal. The visualized colonic mucosa was normal. The quality of the prep was good. In the right colon was a less than 5 mm sessile polyp, which was removed with the biopsy forceps. No other polyps were identified. There was a patent sigmoid anastomosis at about 25 cm to 30 cm. There was moderate diverticulosis involving the sigmoid and scattered diverticula throughout the colon. Retroflexed examination showed moderate-sized internal hemorrhoids. IMPRESSION: Colon polyp. RECOMMENDATION: Follow up the biopsy results. MD GARTH Mcknight/KATELYN / [id number]
== END 2024-09-02 13:02 | disposition home or self-care (01) ==
PROVIDERS: PCP Internal Medicine; Visit Provider Internal Medicine Gastroenterology
PROC: 0DJD8ZZ Inspection of Lower Intestinal Tract, Via Natural or Artificial Opening Endoscopic (ICD-10-PCS; CPT 45378; principal; 2024-09-02 11:40)
DX: R19.8 Other specified symptoms and signs involving the digestive system and abdomen (principal); Z85.038 Personal history of other malignant neoplasm of large intestine; C78.7 Secondary malignant neoplasm of liver and intrahepatic bile duct; Z86.0101 Personal history of adenomatous and serrated colon polyps; D12.3 Benign neoplasm of transverse colon; K57.30 Diverticulosis of large intestine without perforation or abscess without bleeding; K64.8 Other hemorrhoids; Z90.49 Acquired absence of other specified parts of digestive tract; Z98.0 Intestinal bypass and anastomosis status; I10 Essential (primary) hypertension; E11.9 Type 2 diabetes mellitus without complications; E78.5 Hyperlipidemia, unspecified; I25.10 Atherosclerotic heart disease of native coronary artery without angina pectoris; Z95.5 Presence of coronary angioplasty implant and graft; I25.2 Old myocardial infarction; G47.33 Obstructive sleep apnea (adult) (pediatric); Z79.84 Long term (current) use of oral hypoglycemic drugs; Z79.01 Long term (current) use of anticoagulants; Z79.82 Long term (current) use of aspirin; Z79.899 Other long term (current) drug therapy; Z88.5 Allergy status to narcotic agent; Z87.891 Personal history of nicotine dependence
CPT/HCPCS: 45380; 82947; 88305; J2003; J2704